=== PATIENT | female | born 1970 | race Caucasian/White ===

== ENCOUNTER → 2020-05-09 10:57 | Outpatient (BNVA) | payer OTHER, SELFPAY | PROVIDERS: PCP Internal Medicine; Visit Provider Physician Assistant | DX: E66.01 Morbid (severe) obesity due to excess calories (principal); Z68.41 Body mass index [BMI] 40.0-44.9, adult; F90.9 Attention-deficit hyperactivity disorder, unspecified type; F41.9 Anxiety disorder, unspecified; F32.9 Major depressive disorder, single episode, unspecified; F10.20 Alcohol dependence, uncomplicated | CPT/HCPCS: 99202 ==

== ENCOUNTER → 2020-06-01 08:25 | Outpatient (BNVA) | payer OTHER, SELFPAY | PROVIDERS: PCP Internal Medicine; Referring Provider Internal Medicine; Visit Provider Physician Assistant | DX: Z76.89 Persons encountering health services in other specified circumstances (principal) ==

== ENCOUNTER → 2020-06-04 08:22 | Outpatient (BNVA) | payer OTHER, SELFPAY | PROVIDERS: PCP Internal Medicine; Visit Provider Surgery | DX: E66.01 Morbid (severe) obesity due to excess calories (principal) | CPT/HCPCS: 99212 ==

== ENCOUNTER → 2020-06-11 14:34 | Outpatient (BNVA) | payer OTHER, SELFPAY | PROVIDERS: PCP Internal Medicine; Visit Provider Surgery | DX: Z12.11 Encounter for screening for malignant neoplasm of colon (principal); Z87.891 Personal history of nicotine dependence | CPT/HCPCS: 99202 ==

== ENCOUNTER → 2020-06-19 08:22 | Outpatient (REF) | payer OTHER, SELFPAY ==
--- NOTE | 2020-06-19 09:24 | XR_ITS ---
EXAMINATION: XR CHEST CLINICAL INFORMATION: Preprocedure COMPARISON: None TECHNIQUE: 2 views of the chest were obtained. FINDINGS: The cardiac and mediastinal contours are normal. The lungs are clear. There is no pleural effusion or pneumothorax. There are degenerative changes of the spine. XR/XR chest 2V IMPRESSION: No evidence for acute disease in the chest.
--- NOTE | 2020-06-19 09:44 | ECG_ITS ---
Test Reason : CP Blood Pressure : / mmHG Vent. Rate : 060 BPM Atrial Rate : 060 BPM P-R Int : 156 ms QRS Dur : 074 ms QT Int : 396 ms P-R-T Axes : 018 001 017 degrees QTc Int : 396 ms Normal sinus rhythm Normal ECG No previous ECGs available Referred By: Lauryn Melendrez Electronically Signed By:YENNY ALANIZ
[2020-06-20 15:03] LABS: H Pylori Breath Test NOT DETECTED (NOT DETECTED)
== END ==
LOC: HO.CARD 08:22
PROVIDERS: Absent Provider Physician Assistant; PCP Internal Medicine; Visit Provider Surgery
DX: Z01.818 Encounter for other preprocedural examination (principal)
CPT/HCPCS: 71046; 83013; 93005; 99211

== ENCOUNTER 2020-06-26 07:23 | Outpatient (REF) | payer OTHER, SELFPAY ==
--- NOTE | 2020-06-26 08:00 | US_ITS ---
EXAMINATION: US COMPLETE ABDOMEN WITH LIVER ELASTOGRAPHY CLINICAL INFORMATION: Obesity. COMPARISON: None. TECHNIQUE: Real-time imaging of the abdominal viscera. Noninvasive ultrasound liver fibrosis assessment is performed using Sebastián ElastPQ point quantification shear wave elastography (pSWE) with a 5 MHz transducer. Multiple elastography samples are obtained. FINDINGS: PANCREAS: Partially visualized. The visualized pancreatic head and body are normal in appearance. The remainder of the pancreas is obscured from visualization by the overlying bowel gas. ABDOMINAL AORTA: The proximal, middle, and distal aortic segments are normal in caliber. INFERIOR VENA CAVA: Visualized portions are normal. LIVER: The liver demonstrates normal size, contour and increased echogenicity. No focal lesion or intrahepatic biliary duct dilatation. The right lobe measures 14.6 cm in length. The left lobe measures 8.4 cm in length. There is normal hepatopedal flow seen. Shear wave elastography provides a median stiffness of 1.29 m/s (reference: normal median stiffness is 0.81 - 1.22 m/s). The IQR/median stiffness to assess sampling precision is 0.3 (reference: optimal IQR/median stiffness is under 0.3). GALLBLADDER: Normal. The gallbladder is physiologically distended without evidence of stones, sludge, polyps, wall thickening or pericholecystic fluid. COMMON BILE DUCT: Normal in caliber measuring 0.8 cm in diameter. RIGHT KIDNEY: Normal. No hydronephrosis. No renal calculi or focal parenchymal lesions. The kidney measures 11.5 cm in maximum dimension. LEFT KIDNEY: Normal. No hydronephrosis. No renal calculi or focal parenchymal lesions. The kidney measures 10.2 cm in maximum dimension. SPLEEN: Normal. The spleen measures 10.2 cm in maximum dimension. FREE FLUID: None. US/US abdomen comp w elastography IMPRESSION: 1. Hepatic steatosis without focal lesion. 2. The partially visualized pancreas is unremarkable. 3. The rest of the abdominal ultrasound is unremarkable. 4. Elastography: Normal to mild fibrosis, F0-F1.
[2020-06-26 08:36] LABS: MANUAL DIFF FLAG NO
[2020-06-26 08:43] LABS: Basophils Absolute Auto 0.1 X10*3/uL (0.0-0.2); Basophils Percent Auto 1.1 % (0-2); Eosinophils Absolute Auto 0.2 X10*3/uL (0.0-0.4); Eosinophils Percent Auto 3.4 % (0-4); Hemoglobin 14.5 g/dl (12.0-16.0); Imm Gran Abs Auto 0.01 X10*3/uL (0.00-0.03); Imm Gran Pct Auto 0.2 % (0.0-0.4); Lymphocytes Absolute Auto 1.6 X10*3/uL (1.2-4.9); Mean Corpuscular Hemoglobin 30.1 pg (27.0-33.0); Mean Corpuscular Volume 91.3 fL (80-98); Mean Platelet Volume 10.1 fL (9.4-12.3); Monocytes Absolute Auto 0.3 X10*3/uL (0.1-1.2); Monocytes Percent Auto 6.8 % (2-11); Neutrophils Absolute Auto 2.6 X10*3/uL (2.0-8.3); Neutrophils Percent Auto 54.5 % (45-73); Platelet Count 302 X10*3/uL (160-400); Red Blood Count 4.82 X10*6/uL (4.20-5.50); Red Cell Distribution Width 12.7 % (11.0-16.0); White Blood Count 4.7 X10*3/uL (4.8-10.8)
--- NOTE | 2020-06-26 08:47 | FL_ITS ---
EXAMINATION: XR GI SERIES CLINICAL INFORMATION: Preop COMPARISON: None TECHNIQUE: Upper GI was performed using thin and thick barium and effervescent granules. FINDINGS: Esophageal motility is normal. There is gastroesophageal reflux. No esophageal hernia or stricture is seen. Stomach and duodenum are normal-appearing. No fold thickening, mass, stricture or ulcer is seen. FLUOROSCOPY TIME: 0.5 minutes DOSE AREA PRODUCT: 8 Butler per centimeter squared. Total dose 26 mgy. 20 saved fluoroscopic images. FL/FL upper GI series IMPRESSION: Gastroesophageal reflux otherwise unremarkable exam.
[2020-06-26 09:15] LABS: Alanine Aminotransferase 19 U/L (0-31); Albumin Level 4.5 g/dL (3.5-5.0); Alkaline Phosphatase 61 U/L (39-117); Anion Gap 13 (12-20); Aspartate Amino Transferase 25 U/L (5-31); Bilirubin Total 0.4 mg/dL (0.0-1.0); Blood Urea Nitrogen 16 mg/dL (9-16); C Reactive Protein 1.17 mg/dL (< or = 0.50); Calcium 9.6 mg/dL (8.4-10.2); Carbon Dioxide 28 mmol/L (22-29); Chloride 105 mmol/L (96-108); Cholesterol 172 mg/dL; Estimated Glomerular Filt Rate > 60; Glucose Random 102 mg/dL (60-115); HDL Cholesterol 55 mg/dL; Iron 49 mcg/dL (30-160); LDL Cholesterol Calculated 106 mg/dl; Percent Iron Saturation 17 % (15-50); Potassium 4.6 mmol/l (3.3-5.1); Sodium 141 mmol/L (135-145); Total Iron Binding Capacity 282 mcg/dL (228-428); Total Protein 7.3 g/dL (6.5-8.0); Triglycerides 55 mg/dL; Unsaturated Iron Binding 233 ug/dL
[2020-06-26 09:40] LABS: TSH reflex Free T4 1.53 mIU/mL (0.32-4.0); Vitamin D 25-OH Total 23.6 ng/mL (>30)
[2020-06-26 09:44] LABS: Folate 11.5 ng/mL (> or = 4.0); Vitamin B12 1008 pg/mL (200-900)
[2020-06-26 10:13] LABS: Estimated Average Glucose 97 mg/dL
[2020-06-26 10:14] LABS: Ferritin 73 ng/mL (10-250)
[2020-06-27 11:33] LABS: Calcium (PTHI) 9.7 mg/dL (8.6-10.4); Insulin Level Total 8.4 uIU/mL; PTHI 56 pg/mL (14-64)
[2020-06-29 16:47] LABS: Zinc 121 mcg/dL (60-130)
[2020-06-30 21:12] LABS: Vitamin A 38 mcg/dL (38-98)
[2020-07-01 10:23] LABS: Vitamin B1 7 nmol/L (8-30)
== END 2020-06-26 07:24 | disposition home or self-care (01) ==
LOC: HO.US 07:23
PROVIDERS: Absent Provider Physician Assistant; PCP Internal Medicine; Visit Provider Surgery
DX: Z01.818 Encounter for other preprocedural examination (principal); E66.01 Morbid (severe) obesity due to excess calories; K21.9 Gastro-esophageal reflux disease without esophagitis; Z98.84 Bariatric surgery status; Z98.890 Other specified postprocedural states; Z90.3 Acquired absence of stomach [part of]
CPT/HCPCS: 36415; 74240; 76705; 76981; 80053; 80061; 82306; 82607; 82728; 82746; 83036; 83525; 83540; 83970; 84425; 84443; 84590; 84630; 85025; 86140

== ENCOUNTER → 2020-06-27 08:10 | Outpatient (BNVA) | payer OTHER, SELFPAY | PROVIDERS: PCP Internal Medicine; Visit Provider Dietitian, Registered | DX: Z76.89 Persons encountering health services in other specified circumstances (principal) ==

== ENCOUNTER → 2020-06-29 08:34 | Outpatient (BNVA) | payer OTHER, SELFPAY | PROVIDERS: PCP Internal Medicine; Visit Provider Surgery | DX: Z76.89 Persons encountering health services in other specified circumstances (principal) ==

== ENCOUNTER → 2020-07-12 08:00 | Outpatient (BNVA) | payer OTHER, SELFPAY | PROVIDERS: PCP Internal Medicine; Visit Provider Dietitian, Registered ==

== ENCOUNTER 2020-07-13 08:16 | Day surgery (SDC) | payer OTHER, SELFPAY ==
[2020-07-12 08:21] VITALS: BMI 41.1
--- NOTE | 2020-07-12 10:50 | HO.ANESPROP2 ---
Documented by User: Meena Viveros 07/12/20 10:52 HPI - Anesthesia Eval Consult details Narrative: 50yo F for Colonoscopy PMFSH Past Medical History Medical History ADHD Anxiety and depression Bone spur Morbid obesity Family History Family History Father No problems noted. Mother Cholangiocarcinoma Sister Diabetes mellitus Brother No problems noted. Brother No problems noted. Son No problems noted. Surgical History Surgical History History of back surgery Social History Social History Alcohol intake: never Smoking Status: Former smoker Packs Per Day: 1 Years Smoked: 10 Second Hand Smoke Exposure: No Use of substances other than those prescribed or required for medical reasons: No Advance Directives: No Advance Directives Information Provided: No Advance Directives on File: No Meds Allergies Allergy/AdvReac Type Severity Reaction Status Date / Time Latex, Natural Rubber Allergy Mild Hives Verified 07/13/20 08:28 prochlorperazine Allergy Mild Itching Verified 07/13/20 08:28 [From Compazine] Home Medications Medication Instructions Recorded Confirmed Type dextroamphetamine-amphetamine 20 20 mg PO BID 05/09/20 06/04/20 History mg tablet lamotrigine 100 mg tablet 100 mg PO DAILY 05/09/20 06/04/20 History levonorgestrel 20 mcg/24 hours (6 INTRAUTERINE 05/09/20 06/04/20 History yrs) 52 mg intrauterine device omeprazole 20 mg capsule,delayed 20 mg PO DAILY 05/09/20 06/04/20 History release trazodone 100 mg tablet mg PO 05/09/20 06/04/20 History Exam Exam Date and Time: July 12, 2020 1050 Height,Weight and Vital Signs: Height 5 ft 3 in Weight 105.347 kg Pertinent Lab Results Pertinent Lab Results: Laboratory Tests 06/26/20 06/26/20 07:45 07:45 WBC 4.7 L Hgb 14.5 Hct 44.0 Plt Count 302 Sodium 141 Potassium 4.6 Chloride 105 Carbon Dioxide 28 BUN 16 Creatinine 0.86 Assessment and Plan Assessment Anesthesia Assessment: Chart Reviewed Documented by User: Blanca Mcneil 07/13/20 08:57 PMFSH Past Medical History Medical History ADHD Anxiety and depression Bone spur Morbid obesity Family History Family History Father No problems noted. Mother Cholangiocarcinoma Sister Diabetes mellitus Brother No problems noted. Brother No problems noted. Son No problems noted. Surgical History Surgical History History of back surgery Social History Social History Alcohol intake: never Smoking Status: Former smoker Packs Per Day: 1 Years Smoked: 10 Second Hand Smoke Exposure: No Use of substances other than those prescribed or required for medical reasons: No Advance Directives: No Advance Directives Information Provided: No Advance Directives on File: No Meds Allergies Allergy/AdvReac Type Severity Reaction Status Date / Time Latex, Natural Rubber Allergy Mild Hives Verified 07/13/20 08:28 prochlorperazine Allergy Mild Itching Verified 07/13/20 08:28 [From Compazine] Home Medications Medication Instructions Recorded Confirmed Type dextroamphetamine-amphetamine 20 20 mg PO BID 05/09/20 06/04/20 History mg tablet lamotrigine 100 mg tablet 100 mg PO DAILY 05/09/20 06/04/20 History levonorgestrel 20 mcg/24 hours (6 INTRAUTERINE 05/09/20 06/04/20 History yrs) 52 mg intrauterine device omeprazole 20 mg capsule,delayed 20 mg PO DAILY 05/09/20 06/04/20 History release trazodone 100 mg tablet mg PO 05/09/20 06/04/20 History Exam Airway Mallampati Class: II TM Dist: >3cm Neck ROM: Full Heart: RRR Lungs: CTA
[2020-07-13 08:40] VITALS: BP 120/65; PULSE 77; RESP 16; TEMP 36.4; O2SAT 98
[2020-07-13] MEDS: Lactated Ringers 1,000 ML 100 ML IVCONT (09:04)
--- NOTE | 2020-07-13 09:07 | P.HPSUR_ITS ---
Pre-Procedural Eval Section B Chief Complaint: screening Details of Present Illness: for screening colonoscopy Relevant Family History (Specify if Yes): No Relevant Social History: None Present Medications: see Short Stay Collaborative assessment Medical History: No relevant PMH History of Previous Operations: No relevant previous surgery Allergies: Allergies Allergy/AdvReac Type Severity Reaction Status Date / Time Latex, Natural Rubber Allergy Mild Hives Verified 07/13/20 08:28 prochlorperazine Allergy Mild Itching Verified 07/13/20 08:28 [From Compazine] Review of Systems Sugical H&P ROS: Negative: Constitution, Cardiovascular, Respiratory, N eurological, Psychiatric, Hem-Onc, Allergic/Immunologic, Gastrointestinal, Genitourinary, Musculoskeletal, Integumentary, Endocrine and Eyes/Ears/Nose/Throat Exam Surgical H&P Exam: Normal: HEENT, Normal: Heart, Normal: Lungs, Normal: Extremities, Normal: Abdomen, Normal: Skin and Normal: Neurological Plan Diagnosis/Plan: Unchanged I have reviewed the history and physical and performed a pertinent physical examination on my patient. No changes have occurred unless specified.
[2020-07-13 09:39] VITALS: BP 93/41; PULSE 72; RESP 16; TEMP 37.1; O2SAT 96
--- NOTE | 2020-07-13 09:39 | PM.OP ---
Brief Operative Note Date of Service: 07/13/20 Pre-op diagnosis: colon ca screen Post-op diagnosis: same Procedure: colonoscopy Surgeon: Rob Dykes MD Anesthesia: MAC Estimated blood loss (mL): 0 Pathology: none sent Condition: stable Disposition: PACU
[2020-07-13 09:54] VITALS: BP 123/70; PULSE 82; RESP 18; O2SAT 97
[2020-07-13 09:57] VITALS: TEMP 36.7
--- NOTE | 2020-07-13 10:11 | OP_ITS ---
SURGEON: Rob Dykes MD INDICATIONS: The patient is a 50-year-old female, who was referred for screening colonoscopy. She understood the technique of the procedure. She was aware of the risks, benefits, and alternatives. She said she remembers having colonoscopy about more than 20 years ago, but she does not recall the reason. She says this was unremarkable at that time. PREOPERATIVE DIAGNOSIS: Colon cancer screening. POSTOPERATIVE DIAGNOSIS: Normal colonoscopy findings. PROCEDURE PERFORMED: Colonoscopy. ESTIMATED BLOOD LOSS: COMPLICATIONS: ANESTHESIA: ASSISTANTS: SPECIMENS: DESCRIPTION OF PROCEDURE: She was brought to the operating room and placed in left lateral decubitus position under monitored anesthesia care. A full digital rectal exam was done. There were no palpable anal canal lesions. The tip of the Olympus colonoscope was introduced gently through the anal orifice and advanced with insufflation all the way to the cecum. The cecum was intubated. The cecum was identified by visualization of the cecal valve as well as the appendiceal orifice. The cecal mucosa was unremarkable. The scope was gradually withdrawn with careful examination of the entire colonic mucosa being done with scope withdrawal. This patient has good bowel prep, so it was unlikely that any lesion had been missed. The rectum was reached, and there were no lesions seen. The anal canal was unremarkable. She did have some internal and external hemorrhoids and we made sure that they were not bulky. The scope was then withdrawn completely with de-sufflation. The patient tolerated the procedure well. There were no complications noted. She falls at average risk for colon cancer, so next colonoscopy may be in the next 10 years. MD CALEB Gonzalez/MODL / [id number]
== END 2020-07-13 10:55 | disposition home or self-care (01) ==
PROVIDERS: PCP Internal Medicine; Visit Provider Surgery
PROC: 0DJD8ZZ Inspection of Lower Intestinal Tract, Via Natural or Artificial Opening Endoscopic (ICD-10-PCS; CPT 45378; principal; 2020-07-13 09:30)
DX: Z12.11 Encounter for screening for malignant neoplasm of colon (principal); K64.8 Other hemorrhoids; K64.4 Residual hemorrhoidal skin tags; F90.9 Attention-deficit hyperactivity disorder, unspecified type; E66.01 Morbid (severe) obesity due to excess calories; Z68.41 Body mass index [BMI] 40.0-44.9, adult; Z87.891 Personal history of nicotine dependence; Z91.040 Latex allergy status; Z88.8 Allergy status to other drugs, medicaments and biological substances; Z79.899 Other long term (current) drug therapy
CPT/HCPCS: 45378

== ENCOUNTER → 2020-07-23 08:18 | Outpatient (BNVA) | payer OTHER, SELFPAY | PROVIDERS: PCP Internal Medicine; Visit Provider Surgery ==

== ENCOUNTER → 2020-08-24 08:55 | Outpatient (BNVA) | payer OTHER, SELFPAY | PROVIDERS: PCP Internal Medicine; Visit Provider Surgery ==

== ENCOUNTER 2020-08-30 13:10 | Outpatient (REF) | payer OTHER, SELFPAY ==
[2020-08-30 13:36] LABS: MANUAL DIFF FLAG NO
[2020-08-30 13:42] LABS: Basophils Absolute Auto 0.1 X10*3/uL (0.0-0.2); Basophils Percent Auto 0.7 % (0-2); Eosinophils Percent Auto 0.3 % (0-4); Hemoglobin 14.4 g/dl (12.0-16.0); Imm Gran Abs Auto 0.03 X10*3/uL (0.00-0.03); Imm Gran Pct Auto 0.4 % (0.0-0.4); Lymphocytes Percent Auto 26.8 % (20-40); Mean Corpuscular HGB Conc 33.5 g/dl (31.0-35.0); Mean Corpuscular Hemoglobin 29.9 pg (27.0-33.0); Mean Corpuscular Volume 89.4 fL (80-98); Mean Platelet Volume 9.5 fL (9.4-12.3); Monocytes Absolute Auto 0.5 X10*3/uL (0.1-1.2); Neutrophils Absolute Auto 4.9 X10*3/uL (2.0-8.3); Neutrophils Percent Auto 65.8 % (45-73); Platelet Count 347 X10*3/uL (160-400); Red Blood Count 4.81 X10*6/uL (4.20-5.50); Red Cell Distribution Width 12.7 % (11.0-16.0); White Blood Count 7.5 X10*3/uL (4.8-10.8)
[2020-08-30 13:46] LABS: INTERNATIONAL NORM RATIO 1.2 (0.9-1.1); Prothrombin Time 14.2 SEC (10.8-13.0)
[2020-08-30 13:48] LABS: Partial Thromboplastin Time 37.6 SEC (24.1-38.0)
[2020-08-30 13:51] LABS: Estimated Average Glucose 108 mg/dL; Hemoglobin A1c % 5.4 %
[2020-08-30 14:04] LABS: Alanine Aminotransferase 8 U/L (0-31); Albumin Level 4.8 g/dL (3.5-5.0); Alkaline Phosphatase 74 U/L (39-117); Anion Gap 17 (12-20); Aspartate Amino Transferase 19 U/L (5-31); Bilirubin Total 0.8 mg/dL (0.0-1.0); Blood Urea Nitrogen 13 mg/dL (9-16); C Reactive Protein 2.07 mg/dL (< or = 0.50); Carbon Dioxide 27 mmol/L (22-29); Chloride 100 mmol/L (96-108); Cholesterol 209 mg/dL; Estimated Glomerular Filt Rate > 60; Glucose Random 92 mg/dL (60-115); HDL Cholesterol 52 mg/dL; LDL Cholesterol Calculated 145 mg/dl; Sodium 140 mmol/L (135-145); Triglycerides 62 mg/dL
[2020-08-30 14:27] LABS: TSH reflex Free T4 1.06 uIU/mL (0.32-4.0)
[2020-09-04 06:41] LABS: Insulin Level Total 5.3 uIU/mL
== END 2020-08-30 13:11 | disposition home or self-care (01) ==
LOC: HO.LAB 13:10
PROVIDERS: PCP Internal Medicine; Visit Provider Surgery
DX: E66.9 Obesity, unspecified (principal); Z68.39 Body mass index [BMI] 39.0-39.9, adult
CPT/HCPCS: 36415; 80053; 80061; 83036; 83525; 84443; 85025; 85610; 85730; 86140

== ENCOUNTER → 2020-08-31 13:53 | Outpatient (BNVA) | payer OTHER, SELFPAY | PROVIDERS: PCP Internal Medicine; Visit Provider Physician Assistant ==

== ENCOUNTER 2020-09-04 06:21 | Inpatient (IN) | payer OTHER, SELFPAY ==
[2020-08-24 13:27] VITALS: BMI 85.7
--- NOTE | 2020-09-03 09:32 | P.CONAN_ITS ---
Documented by User: Meena Viveros 09/03/20 09:36 HPI - Anesthesia Eval Consult details Narrative: 50yo F for Gastrectomy Sleeve *h/o of ETOH abuse, requesting NO post-op narcotics* PMFSH Active Problems Active Problems: All Active Problems (Updated 08/24/20 @ 14:12 by Chino Kilgore MD) GERD (gastroesophageal reflux disease) (Acute) Pre-op evaluation (Acute) Encounter for screening colonoscopy (Acute) Obesity (Acute) BMI 39.0-39.9,adult (Acute) Anxiety and depression (Acute) ADHD (Acute) Morbid obesity (Acute) Past Medical History Medical History ADHD Anxiety and depression Arthritis Bone spur GERD (gastroesophageal reflux disease) GERD (gastroesophageal reflux disease) History of alcohol dependence Morbid obesity Sleep apnea Family History Family History Father No problems noted. Mother Cholangiocarcinoma Sister Diabetes mellitus Brother No problems noted. Brother No problems noted. Son No problems noted. Surgical History Surgical History H/O colonoscopy History of back surgery Social History Social History Are you a primary ocular care technician to a significant other at home: No Do you presently have visiting nurse or other home services: No Alcohol intake: former Year quit: 2014 Smoking Status: Former smoker Tobacco Type: Cigarette Packs Per Day: 1 Years Smoked: 10 Smoked in Last 30 Days: No Smoking Quit Date: 1992 Second Hand Smoke Exposure: No Use of substances other than those prescribed or required for medical reasons: No Have you been hit, kicked, punched, or otherwise hurt by someone within the past year? If so, by whom?: No Advance Directives Information Provided: No Recently lost weight without trying: No Meds Allergies Allergy/AdvReac Type Severity Reaction Status Date / Time Latex, Natural Rubber Allergy Mild Hives Verified 09/04/20 06:25 prochlorperazine Allergy Mild itching/anx Verified 09/04/20 06:25 [From Compazine] iety Home Medications Medication Instructions Recorded Confirmed Last Taken Type dextroamphetamine-amphetamine 20 20 mg PO BID 05/09/20 08/24/20 Unknown History mg tablet lamotrigine 100 mg tablet 100 mg PO DAILY 05/09/20 08/24/20 Unknown History levonorgestrel 20 mcg/24 hours (6 INTRAUTERINE 05/09/20 06/04/20 Unknown History yrs) 52 mg intrauterine device omeprazole 20 mg capsule,delayed 20 mg PO DAILY 05/09/20 08/24/20 Unknown History release trazodone 100 mg tablet 100 mg PO BEDTIME PRN 05/09/20 08/24/20 Unknown History Lactobacillus acidophilus 500 mmu cells PO DAILY 08/24/20 08/24/20 Unknown History [Acidophilus] gabapentin 1 cap PO BEDTIME 08/24/20 08/24/20 Unknown History vitamin B complex 1 tab PO DAILY 08/24/20 08/24/20 Unknown History Exam Exam Date and Time: September 03, 2020 0932 Height,Weight and Vital Signs: Height 5 ft 3.5 in Weight 223 kg Pertinent Lab Results Pertinent Lab Results: Laboratory Tests 08/30/20 13:25 Blood Type A Negative Antibody Screen NEGATIVE Laboratory Tests 08/30/20 08/30/20 13:25 13:25 WBC 7.5 Hgb 14.4 Hct 43.0 Plt Count 347 Sodium 140 Potassium 4.0 Chloride 100 Carbon Dioxide 27 BUN 13 Creatinine 0.93 Laboratory Tests 08/30/20 08/30/20 13:25 13:25 Hemoglobin A1c % 5.4 Total Bilirubin 0.8 AST 19 ALT 8 Alkaline Phosphatase 74 D C-Reactive Protein 2.07 H Total Protein 8.0 Albumin 4.8 TSH 1.06 Narrative Narrative: EKG 05/2020 Vent. Rate : 060 BPM Atrial Rate : 060 BPM P-R Int : 156 ms QRS Dur : 074 ms QT Int : 396 ms P-R-T Axes : 018 001 017 degrees QTc Int : 396 ms Normal sinus rhythm Normal ECG No previous ECGs available Assessment and Plan Assessment Anesthesia Assessment: Chart Reviewed Documented by User: Freddie Gutierrez 09/04/20 07:55 PMFSH Past Medical History Medical History ADHD Anxiety and depression Arthritis Bone spur GERD (gastroesophageal reflux disease) GERD (gastroesophageal reflux disease) History of alcohol dependence Morbid obesity Sleep apnea Family History Family History Father No problems noted. Mother Cholangiocarcinoma Sister Diabetes mellitus Brother No problems noted. Brother No problems noted. Son No problems noted. Surgical History Surgical History H/O colonoscopy History of back surgery Social History Social History Are you a primary ocular care technician to a significant other at home: No Do you presently have visiting nurse or other home services: No Alcohol intake: former Year quit: 2014 Smoking Status: Former smoker Tobacco Type: Cigarette Packs Per Day: 1 Years Smoked: 10 Smoked in Last 30 Days: No Smoking Quit Date: 1992 Second Hand Smoke Exposure: No Use of substances other than those prescribed or required for medical reasons: No Have you been hit, kicked, punched, or otherwise hurt by someone within the past year? If so, by whom?: No Advance Directives Information Provided: No Recently lost weight without trying: No Meds Allergies Allergy/AdvReac Type Severity Reaction Status Date / Time Latex, Natural Rubber Allergy Mild Hives Verified 09/04/20 06:25 prochlorperazine Allergy Mild itching/anx Verified 09/04/20 06:25 [From Compazine] iety Home Medications Medication Instructions Recorded Confirmed Last Taken Type dextroamphetamine-amphetamine 20 20 mg PO BID 05/09/20 08/24/20 Unknown History mg tablet lamotrigine 100 mg tablet 100 mg PO DAILY 05/09/20 08/24/20 Unknown History levonorgestrel 20 mcg/24 hours (6 INTRAUTERINE 05/09/20 06/04/20 Unknown History yrs) 52 mg intrauterine device omeprazole 20 mg capsule,delayed 20 mg PO DAILY 05/09/20 08/24/20 Unknown History release trazodone 100 mg tablet 100 mg PO BEDTIME PRN 05/09/20 08/24/20 Unknown History Lactobacillus acidophilus 500 mmu cells PO DAILY 08/24/20 08/24/20 Unknown History [Acidophilus] gabapentin 1 cap PO BEDTIME 08/24/20 08/24/20 Unknown History vitamin B complex 1 tab PO DAILY 08/24/20 08/24/20 Unknown History Exam Airway Mallampati Class: III TM Dist: >3cm Neck ROM: Full Loose/Missing/Broken Teeth: No Heart: [id number] Lungs: cta b/l Assessment and Plan Assessment Anesthesia Assessment: Anesthesia Plan Discussed, PAT Visit and Chart Reviewed Final Anesthetic Review NPO: Yes ASA Class: II Final Preanesthetic Review: No Changes in Pt Med Stat, Meds/Allgs Chart Reviewed, Consent Obtained/Reviewed and Anes Risks/Benef Reviewed Patient Risk: Low Procedure Risk: Low Assessment/Block/Sedation in SS: Assess/Block/Sedation-SS Anesthetic Plan Anesthetic Plan: GA and Agree w/ Assess. and Plan Disposition: Standard PACU
--- NOTE | 2020-09-03 22:39 | P.HPSUR_ITS ---
Pre-Procedural Eval Section A The patient is an INPATIENT: Yes The History & Physical has been completed within 30 days and I have reviewed it.: No Section B Chief Complaint: severe obesity Details of Present Illness: Obesity Relevant Family History (Specify if Yes): No Relevant Social History: None Present Medications: see Short Stay Collaborative assessment Medical History: No relevant PMH History of Previous Operations: No relevant previous surgery Allergies: Allergies Allergy/AdvReac Type Severity Reaction Status Date / Time Latex, Natural Rubber Allergy Mild Hives Verified 08/24/20 14:09 prochlorperazine Allergy Mild itching/anx Verified 08/24/20 14:09 [From Compazine] iety Review of Systems Sugical H&P ROS: Negative: Constitution, Cardiovascular, Respiratory, Neuro logical, Psychiatric, Hem-Onc, Allergic/Immunologic, Gastrointestinal, Genitourinary, Musculoskeletal, Integumentary, Endocrine and Eyes/Ears/Nose/Throat Exam Surgical H&P Exam: Normal: HEENT, Normal: Heart, Normal: Lungs, Normal: Extremities, Normal: Abdomen, Normal: Skin and Normal: Neurological Plan Diagnosis/Plan: Unchanged I have reviewed the history and physical and performed a pertinent physical examination on my patient. No changes have occurred unless specified.
[2020-09-04] VITALS (15 sets, daily range): BP systolic 126–161; BP diastolic 50–89; PULSE 60–104; RESP 14–20; TEMP 36.4–37.2; O2SAT 95–100; BMI 35.6
[2020-09-04 06:53] LABS: COVID-19 Test Negative (Negative)
[2020-09-04] MEDS: Lactated Ringers 1,000 ML 100 ML IVCONT (07:09)
[2020-09-04] MEDS: Lactated Ringers 1,000 ML 999 ML IV (07:09)
--- NOTE | 2020-09-04 10:33 | P.BOP_ITS ---
Brief Operative Note Date of Service: 09/04/20 Pre-op diagnosis: Morbid obesity and comorbidities (see below) Post-op diagnosis: same (& large diaphragmatic hernia) Procedure: INITIAL PATIENT BMI ON PRESENTATION AT OUR OFFICE: 46.3 kg/m2 LAST BMI BEFORE SURGERY: 37,7 kg/m2 COMORBIDITIES: GERD, ADHD, depression, insomnia, liver steatosis The patient participated in an intensive weekly lifestyle intervention and exercise program during which the patient has lost between the initial office visit and the last preoperative visit 31.8lbs, or 13% of initial actual body weight. The patient met the BMI-criteria for bariatric surgery based on the BMI on initial presentation. The patient should not be penalized for achieving such weight loss because it is not sustainable long-term without surgical intervention and it was achieved in preparation for bariatric surgery under my direction and based on my published research ([email or web address] and [email or web address]) that a 10% preoperative weight loss improves long-term weight loss after surgery and reduces perioperative complications. Insurance carriers such as [facility] have endorsed my recommendations and have included in their policies criteria to include a 10% preoperative weight loss requirement. PROCEDURE: Esophago-gastroscopy, laparoscopic repair of incarcerated diaphragmatic hernia, laparoscopic lysis of adhesions, laparoscopic sleeve gastrectomy and laparoscopic gastropexy INDICATIONS: This is a 50 year-old female who was electively scheduled for laparoscopic, possibly open sleeve gastrectomy. The risks and complications of the procedure were discussed with the patient in advance, particularly the possibility of ; pulmonary embolism; staple line leak; bleeding; GERD; cardiac, pulmonary, or renal complications; as well as long-term problems such as insufficient weight loss, vitamin deficiency, strictures, or ulcers. The patient understood all the risks, and was in agreement to proceed with surgery. DESCRIPTION OF PROCEDURE: After informed consent was obtained from the patient, the patient was given preoperative antibiotics, and was transferred to the operating room. After successful induction of general anesthesia, pneumatic compressive devices were placed on both lower extremities. An upper endoscopy was performed next. The oropharynx and esophagus appeared to be within normal limits. There was a moderate to large diaphragmatic hernia present that was not reported at the preoperative upper GI. The stomach was entered. Then after all fluid and air were suctioned and the stomach was fully decompressed, the scope was withdrawn and secured in the mid esophagus. The patient was then prepped and draped in the usual sterile manner, and abdominal access was established at the right upper quadrant with the Brigitte technique. A 12 mm blunt port was inserted, and the abdomen was insufflated with CO2 to a pressure of 15 mmHg. Under direct visualization, additional ports were placed, specifically two 5 mm Versi-step ports to the left upper quadrant, and a 5 mm Versi-Step port to the right upper quadrant. 1% lidocaine plan was used to infiltrate all port sites as well as all fascia defects. Using the EndoClose suture passer device, we placed a #1 Polysorb tie across the falciform ligament in order to retract it up against the abdominal wall and prevent injury of the ligament with our instruments during the procedure. Following that, the patient was placed in a steep reverse Trendelenburg position. An additional 5 mm port was placed to the right flank for the Mediflex retractor that was used to retract the left lobe of the liver. The gastro-esophageal fat pad was opened with the ultrasonic device (Thunderbeat, Olympus) and the anterior esophagus and hiatus were exposed. The angle of His was opened with the ultrasonic device the fundus of the stomach from any diaphragmatic and splenic attachments. I then opened the gastrocolic ligament between the transverse colon and the greater curvature of the stomach with the ultrasonic device to enter the lesser sac and facilitate the ligation of the short gastric vessels. I started at a mid-point along the greater curvature and using the Thunderbeat, all short gastric vessels were divided all the way to the angle of His until the left ann was completely dissected at its entirety. I then divided the gastro-colic ligament distally to a distance of about 3-4 cm proximal to the esophagus. There were extensive congenital adhesions between the pancreas and posterior gastric wall. Those were lysed completely with the ultrasonic device. Adhesiolysis took approximately 45 min to complete. There was an obvious significant-sized hiatal hernia. I continued dissecting along the hiatus toward the left ann and the angle of His. I fully mobilized the fat pad that was incarcerated in the hernia. I then continued by dissecting even further into the posterior retro-esophageal space all the way to the angle of His. I continued to mobilize the esophagus into the mediastinum circumferentially. The right ann was also dissected free completely. Both vagal nerves were seen and preserved. At that point, I was able to have at least 3 to 5 cm of esophagus into the abdomen. After I completely mobilized the esophagus from both the left and right ann and I had a good mobilization of the esophagus circumferentially, I closed the hernia defect with five interrupted #0 Surgidac sutures using the Endo Stitch device, three of which was placed posterior and two anterior to the esophagus. The stomach was then divided transversely with two Endo JAVID-45 purple and four JAVID-60 articulating purple loads using the Brain Sentry stapler and loads. Every effort was made that the gastric sleeve had a tubular shape and an even caliber throughout. Once the sleeve resection was completed, the staple line of the gastric sleeve was reinforced with Hemoclips. The resected stomach was retrieved without difficulty from the Brigitte port. A gastropexy was then performed in order to prevent postoperative GERD and partial gastric volvulus. Several interrupted 2.0 Surgidac sutures were placed between the sleeve's staple line and the previously divided greater omentum and gastro-colic ligament using the Endo-Stitch device. An upper endoscopy was performed. There was no narrowing at the GE junction. T he scope was easily advanced all the way to the pylorus which was clearly visualized. There was no narrowing anywhere and the sleeve's caliber was even throughout. The sleeve's staple line was inspected and there was no evidence of ischemia, bleeding or dehiscence. At that point the gastroscope was withdrawn from the patient?s mouth while we were decompressing the bowel and the stomach from any remaining air. I looked into the lesser sac to see how the sleeve was situating and it was situating well. There was no bleeding from the staple line, spleen, or short gastric vessels. The Mediflex retractor was removed, and the undersurface of the liver was inspected and there was no bleeding. The patient was placed in supine position. I closed the fascial defect of the 12 mm port site with a figure of eight #1 Polysorb suture. Then 100 cc 0.25 % Marcaine plain with 10 mg of Dexamethasone were used to infiltrate the fascial closure as well as all skin incisions. At this point, the abdomen was deflated, all ports were removed under direct vision, and no bleeding was noted from any of the port sites. The skin incisions were irrigated with saline and were closed with 4-0 absorbable monofilament sutures. Steri-Strips and OpSites were used to cover all incisions. The patient was extubated and was transferred in stable condition to the recovery room for further care. I was present and performed all henry parts of the procedure. Ms. Melendrez was the mental health assistant. There were no residents to assist with this case. Edward Kilgore MD, PhD, FACS Surgeon: Chino Kilgore MD Anesthesia: GETA, local and other (TAP block) Metal Alloy Scientist: Lauryn Melendrez Estimated blood loss (mL): 10 IV fluids (mL): 2,500 Urine output (mL): 0 (No freeman to record) Pathology: other (Stomach) Condition: stable Disposition: PACU
--- NOTE | 2020-09-04 10:38 | P.DS_ITS ---
DS: Providers Provider Date of Service: 09/05/20 Date of admission: 09/04/20 06:21 Primary care physician: Sonny Cody MD DS: Medications Discharge Medications Home Medications: Home Medications Medication Instructions Recorded Confirmed dextroamphetamine-amphetamine 20 20 mg PO BID 05/09/20 08/24/20 mg tablet lamotrigine 100 mg tablet 100 mg PO DAILY 05/09/20 08/24/20 levonorgestrel 20 mcg/24 hours (6 INTRAUTERINE 05/09/20 06/04/20 yrs) 52 mg intrauterine device omeprazole 20 mg capsule,delayed 20 mg PO DAILY 05/09/20 08/24/20 release trazodone 100 mg tablet 100 mg PO BEDTIME PRN 05/09/20 08/24/20 Lactobacillus acidophilus 500 mmu cells PO DAILY 08/24/20 08/24/20 [Acidophilus] gabapentin 1 cap PO BEDTIME 08/24/20 08/24/20 vitamin B complex 1 tab PO DAILY 08/24/20 08/24/20 Previous Rx's Medication Instructions Recorded cholecalciferol (vitamin D3) 25 25 mcg PO DAILY #30 cap 06/27/20 mcg (1,000 unit) capsule ondansetron HCl 4 mg tablet 4 mg PO DAILY #20 tab 08/24/20 pantoprazole 40 mg tablet,delayed 40 mg PO DAILY #30 tab 08/24/20 release polyethylene glycol 3350 17 gram 17 g PO DAILY #14 ea 08/24/20 oral powder packet sucralfate 100 mg/mL oral 10 ml PO BID #400 ml 08/24/20 suspension DS: Summary Time Spent with Patient Time attestation: Total time spent providing and/or coordinating discharge servi keren: 15 minutes ADMITTING DIAGNOSIS: morbid obesity, hiatal hernia, ADHD, anxiety/depression, GERD, INDU DISCHARGE DIAGNOSIS: same, s/p laparoscopic sleeve gastrectomy and repair of hiatal hernia PAST SURGICAL HISTORY: none PROCEDURE: upper endoscopy, laparoscopic sleeve gastrectomy and repair of hiatal hernia DISCHARGE SUMMARY: History of Present Illness: The patient is a 50 year-old woman with a BMI of 43.7 kg/m2 and associated co- morbidities as described above. The patient had extensive work-up,lost 30.4 lbs preoperatively and was electively scheduled for laparoscopic, possible open sleeve gastrectomy and gastropexy. Risks and complications of the surgery were discussed with the patient in advance, particularly the possibility of , pulmonary embolism, anastomotic leak, bleeding, bowel injury, GERD, cardiac, renal or pulmonary complications. The patient understood all the risks and was in agreement with the surgical plan. Hospital Course: The patient underwent an uneventful laparoscopic sleeve gastrectomy with gastropexy and repair of hiatal hernia on the day of admission. Postoperatively, the patient was transferred to the surgical floor. The patient was on IV Acetaminophen and IV dilaudid for pain control. Patient was started on bariatric phase 1 diet POD #0. On postoperative day one, the patient was feeling well without nausea, vomiting, fevers, or tachycardia. The patient had some mild incisional pain. The abdomen was soft. On the morning of postoperative day one, the patient was continued on 1 ounce of water or ice every half hour. During the first day, the patient did fairly well, having some incisional pain, but able to ambulate adequately and to tolerate liquids well. Since the patient is doing well, we decided that the patient was ready to be discharged. The patient was given instructions to follow-up with me next week and to call my office for any fever over 101, persistent abdominal pain, nausea, vomiting, GERD, symptoms of DVT such as calf tenderness, or leg swelling, or pulmonary embolism such as chest pain or shortness of breath. The patient was also instructed to drink 40-60 ounces of liquids per day using the 1-ounce cups. The patient was given prescription for Tylenol for pain, Zofran prn for nausea, and pantoprazole and carafate. The patient was encouraged to ambulate and use the incentive spirometer. The patient was allowed to shower, but no baths, and encouraged to stay active at home. All of these instructions were given to the patient personally. All questions were answered and the patient understood all instructions, the instructions were also given to the patient in print. Discharge coordination time: Less than 30 minutes Physical Exam Vital Signs: Vital Signs: Last Vital Signs Temp 99.0 F 09/04/20 06:20 Pulse 72 09/04/20 06:20 Resp 16 09/04/20 06:20 BP 126/50 L 09/04/20 06:20 Pulse Ox 99 09/04/20 06:20 Body Mass Index 35.6 DS: Data Data Completed and Pending Pending studies at discharge: Pending at discharge 09/04/20 08:48 Surgical [PTH] Routine Labs on day of discharge: Laboratory Results - last 24 hr 09/04/20 06:15 COVID-19 (ROZ) Negative COVID-19 Clin Com See Note Discharge Plan Discharge Anticipated Discharge Date/Time: 09/05/20 10:36 Patient Disposition: Home, Self-Care Referrals: Sonny Cody MD [Primary Care Provider] - Discharge Medications: Continued gabapentin 300 mg capsule 1 cap PO BEDTIME RF: 0 pantoprazole 40 mg tablet,delayed release (DR/EC) 40 mg PO DAILY Qty: 30 RF: 2 sucralfate 100 mg/mL suspension 10 ml PO BID Qty: 400 RF: 2 ondansetron HCl [Zofran] 4 mg tablet 4 mg PO DAILY Qty: 20 RF: 0 trazodone 100 mg tablet 100 mg PO BEDTIME PRN (Reason: Insomnia) RF: 0 lamotrigine 100 mg tablet 100 mg PO DAILY RF: 0 Mirena 20 mcg/24 hours (6 yrs) 52 mg intrauterine device intrauterine RF: 0 dextroamphetamine-amphetamine [Adderall] 20 mg tablet 20 mg PO BID RF: 0 Discontinued cholecalciferol (vitamin D3) 25 mcg (1,000 unit) capsule 25 mcg PO DAILY Qty: 30 RF: 11 vitamin B complex Tablet 1 tab PO DAILY RF: 0 Lactobacillus acidophilus [Acidophilus] 500 million cell Tablet 500 mmu cells PO DAILY RF: 0 polyethylene glycol 3350 [Miralax] 17 gram powder in packet 17 g PO DAILY Qty: 14 RF: 0 omeprazole 20 mg capsule,delayed release(DR/EC) 20 mg PO DAILY RF: 0 Discharge Orders: Discharge Order (Routine); Ordered 09/05/20 Ordered By: Chino Kilgore Activity on Discharge: As tolerated Stand Alone Forms: Patient Portal Discharge page Activity Restrictions/Additional Instructions: No tub baths, sex or returning to work until discussed at first post op appointment. No exercise, alcohol, tobacco or illegal drug use. Continue to use incentive spirometer hourly while awake. Walk in home for 5- 10 minutes every 2 hours during the first week. Continue phase 1 diet today and start phase 2 diet tomorrow morning. Follow all instructions in the bariatric handbook and call with any questions. Care Plan Goals: weight loss Health Concerns: morbid obesity Plan of Treatment: see discharge instructions Discharge Date/Time: 09/05/20 08:35
--- NOTE | 2020-09-04 10:38 | PM.PNGS ---
Subjective Subjective Date of Service: 09/05/20 Interval history: Patient has mild incisional pain but was able to ambulate and use the incentive spirometer. Is tolerating water 30ml every 30min. Physical Exam Vital Signs: Vital Signs: Last Vital Signs Temp 99.0 F 09/04/20 06:20 Pulse 72 09/04/20 06:20 Resp 16 09/04/20 06:20 BP 126/50 L 09/04/20 06:20 Pulse Ox 99 09/04/20 06:20 Body Mass Index 35.6 GI: Inspection: Yes normal to inspection, Yes incision (dry, clean and intact) and Yes obesity Extrem: Right lower extremity: normal to inspection (no calf tenderness) Left lower extremity: normal to inspection (no calf tenderness) Progress Note: A&P Assessment and plan (1) Obesity: Status: Acute (2) BMI 37.0-37.9, adult: Status: Acute (3) GERD (gastroesophageal reflux disease): Status: Acute (4) Anxiety and depression: Status: Acute (5) ADHD: Problem details: Stop all caffeine after 2pm. Limit to one mug in am , then decaf. Status: Acute (6) Diaphragmatic hernia: Status: Acute (7) Steatosis, liver: Status: Acute (8) Insomnia: Status: Acute (9) S/P laparoscopic sleeve gastrectomy: Status: Acute Assessment and Plan: 50 year old Female was admitted 09/04/2020 with morbid obesity and comorbidities. Problem 1: s/p laparoscopic sleeve gastrectomy, repair of incarcerated diaphragmatic hernia, gastropexy and lysis of adhesions Status: Doing well Plan: Check am labs, If OK, will begin phase 1 bariatric diet. (10) S/P repair of paraesophageal hernia: Status: Acute Fall Risk Details Current Medications: Current Medications Generic Name Dose Route Start Last Admin Trade Name Freq PRN Reason Stop Dose Admin Acetaminophen 975 mg 09/04/20 07:55 Acetaminophen 325 Mg Tablet PO ONCE PRN Pain, Mild (Pain Scale 1-3) Lactated Ringer's 1,000 mls @ 100 mls/hr 09/04/20 06:15 09/04/20 07:09 Lr IVCONT 100 mls/hr .Q10H MIGNON Administration Ondansetron HCl 4 mg 09/04/20 07:55 Ondansetron Hcl 4 Mg/2 Ml Vial IVPUSH ONCE PRN Nausea and Vomiting Time Spent With Patient Time: Total time spent is greater than 50% in coordination of care (as documented) at patient's floor/unit and/or counseling patient: Time with patient: less than 15 minutes
[2020-09-04] MEDS: Famotidine/PF 20 MG/2 ML VIAL IVPUSH ×2 (11:04→21:11)
[2020-09-04 11:09] LABS: Hematocrit 40.1 % (37-47); Hemoglobin 13.3 g/dl (12.0-16.0)
[2020-09-04 11:48] LABS: Anion Gap 15 (12-20); Blood Urea Nitrogen 6 mg/dL (9-16); Calcium 8.9 mg/dL (8.4-10.2); Carbon Dioxide 24 mmol/L (22-29); Chloride 105 mmol/L (96-108); Creatinine Clr Calc Pharmacy 86.7; Estimated Glomerular Filt Rate > 60; Glucose Random 149 mg/dL (60-115); Potassium 4.2 mmol/L (3.3-5.1); Sodium 140 mmol/L (135-145)
[2020-09-04] MEDS: Lactated Ringers 1,000 ML 125 ML IVCONT ×2 (12:36→20:50)
[2020-09-04] MEDS: ceFAZolin Sodium/Dextrose,Iso 2 GM/50 ML PIGGYBACK IV (12:53)
[2020-09-04] MEDS: HYDROmorphone HCl 0.5 MG/0.5 ML SYRINGE 0.25 MG IVPUSH ×2 (17:09→21:11)
[2020-09-04] MEDS: ondansetron HCL 4 MG/2 ML VIAL IVPUSH (19:49)
[2020-09-04] MEDS: Gabapentin 300 MG CAPSULE PO (21:12)
[2020-09-04] MEDS: traZODone HCL 100 MG TABLET PO (21:12)
[2020-09-04] MEDS: 0.9 % Sodium Chloride Flush 3 ML SYRINGE IVFLUSH (21:12)
[2020-09-04] MEDS: Metoclopramide HCl 10 MG/2 ML VIAL IVPUSH (21:18)
[2020-09-05] VITALS: BP 128/78; PULSE 69; RESP 16; O2SAT 98
[2020-09-05 03:33] VITALS: BP 130/70; PULSE 72; RESP 16; TEMP 36.9; O2SAT 95
[2020-09-05] MEDS: ondansetron HCL 4 MG/2 ML VIAL IVPUSH (04:15)
[2020-09-05] MEDS: Lactated Ringers 1,000 ML 125 ML IVCONT (04:15)
[2020-09-05 04:22] VITALS: RESP 18
[2020-09-05] MEDS: HYDROmorphone HCl 0.5 MG/0.5 ML SYRINGE 0.25 MG IVPUSH (04:22)
[2020-09-05 06:19] LABS: MANUAL DIFF FLAG NO
[2020-09-05 06:23] LABS: Basophils Percent Auto 0.1 % (0-2); Imm Gran Abs Auto 0.03 X10*3/uL (0.00-0.03); Imm Gran Pct Auto 0.3 % (0.0-0.4); Lymphocytes Absolute Auto 1.5 X10*3/uL (1.2-4.9); Lymphocytes Percent Auto 13.9 % (20-40); Mean Corpuscular HGB Conc 34.2 g/dl (31.0-35.0); Mean Corpuscular Hemoglobin 30.2 pg (27.0-33.0); Mean Corpuscular Volume 88.4 fL (80-98); Mean Platelet Volume 10.4 fL (9.4-12.3); Monocytes Absolute Auto 0.8 X10*3/uL (0.1-1.2); Monocytes Percent Auto 7.2 % (2-11); Neutrophils Absolute Auto 8.3 X10*3/uL (2.0-8.3); Neutrophils Percent Auto 78.5 % (45-73); Platelet Count 254 X10*3/uL (160-400); Red Cell Distribution Width 12.9 % (11.0-16.0); White Blood Count 10.5 X10*3/uL (4.8-10.8)
[2020-09-05 07:04] LABS: Anion Gap 15 (12-20); Blood Urea Nitrogen 6 mg/dL (9-16); Carbon Dioxide 24 mmol/L (22-29); Chloride 101 mmol/L (96-108); Creatinine Clr Calc Pharmacy 97.2; Estimated Glomerular Filt Rate > 60; Glucose Random 96 mg/dL (60-115); Potassium 4.1 mmol/L (3.3-5.1); Sodium 136 mmol/L (135-145)
[2020-09-05 07:14] VITALS: BP 106/44; PULSE 73; RESP 17; TEMP 36.3; O2SAT 96
--- NOTE | 2020-09-05 08:31 | MHC.CM.PN ---
pt lives c her s.o. in their apt. she reports that she is independent in her care. she works a job and goes to school for nsg. pt's s.o. can help her c any needs she may have. this will include a ride home at dc . pt denies the need for vna at dc. dc plan is home no svcs. cm to cont. to follow.
--- NOTE | 2020-09-05 12:16 | HO.POSTANES ---
Post Anesthesia Evaluation Post Anesthesia Evaluation Vital Signs: Vital Signs Temp Pulse Resp BP Pulse Ox 09/05/20 07:14 97.4 F 73 17 106/44 L 96 09/05/20 04:22 18 09/05/20 03:33 98.5 F 72 16 130/70 95 Anesthesia: General Endotracheal-GETA Mental Status: Awake Pain Control: Satisfactory Nausea/Vomiting: None Hydration: Adequate Anesthesia-Related Issues: No Anes. Related Issues
== END 2020-09-05 08:35 | disposition home or self-care (01) | DRG 403 ==
LOC: HO.SSSA 10:38 → HO.S3 10:49
PROVIDERS: Physician Assistant; Admitting Provider Surgery; PCP Internal Medicine; Visit Provider Surgery
PROC: 0DB64Z3 Excision of Stomach, Percutaneous Endoscopic Approach, Vertical (ICD-10-PCS; CPT 43845; principal; 2020-09-04 07:30)
DX: E66.01 Morbid (severe) obesity due to excess calories (principal); K76.0 Fatty (change of) liver, not elsewhere classified; K44.0 Diaphragmatic hernia with obstruction, without gangrene; F32.9 Major depressive disorder, single episode, unspecified; K21.9 Gastro-esophageal reflux disease without esophagitis; Z68.42 Body mass index [BMI] 45.0-49.9, adult; F90.9 Attention-deficit hyperactivity disorder, unspecified type; G47.00 Insomnia, unspecified; K66.0 Peritoneal adhesions (postprocedural) (postinfection); Z20.822 Contact with and (suspected) exposure to COVID-19; Z79.899 Other long term (current) drug therapy
CPT/HCPCS: 36415; 80048; 85014; 85018; 85025; 86850; 86900; 87635; 88307; 88342; 99024; A4649; J0131; J0690; J1100; J1170; J2250; J2405; J2765; J3010

== ENCOUNTER → 2020-09-12 08:41 | Outpatient (BNVA) | payer OTHER, SELFPAY | PROVIDERS: PCP Internal Medicine; Visit Provider Surgery | DX: E66.9 Obesity, unspecified (principal); Z68.34 Body mass index [BMI] 34.0-34.9, adult; Z71.3 Dietary counseling and surveillance | CPT/HCPCS: 99212 ==

== ENCOUNTER → 2020-10-10 08:20 | Outpatient (BNVA) | payer OTHER, SELFPAY | PROVIDERS: PCP Internal Medicine; Visit Provider Surgery | DX: E66.9 Obesity, unspecified (principal); Z68.31 Body mass index [BMI] 31.0-31.9, adult | CPT/HCPCS: 99212 ==

== ENCOUNTER → 2020-11-09 07:59 | Outpatient (BNVA) | payer OTHER, SELFPAY | PROVIDERS: PCP Internal Medicine; Visit Provider Surgery | DX: E66.9 Obesity, unspecified (principal); Z68.30 Body mass index [BMI] 30.0-30.9, adult | CPT/HCPCS: 99212 ==

== ENCOUNTER → 2020-12-26 07:27 | Outpatient (BNVA) | payer OTHER, SELFPAY | PROVIDERS: PCP Internal Medicine; Visit Provider Surgery ==

== ENCOUNTER → 2021-01-29 09:09 | Outpatient (BNVA) | payer SELFPAY | PROVIDERS: PCP Internal Medicine | DX: Z02.1 Encounter for pre-employment examination (principal) ==

== ENCOUNTER → 2021-02-26 08:17 | Outpatient (BNVA) | payer SELFPAY | PROVIDERS: PCP Internal Medicine; Visit Provider Physician Assistant Surgical ==

== ENCOUNTER → 2021-04-04 07:58 | Outpatient (BNVA) | payer OTHER, SELFPAY | PROVIDERS: PCP Internal Medicine; Visit Provider Physician Assistant Surgical ==

== ENCOUNTER → 2021-05-24 08:02 | Outpatient (BNVA) | payer OTHER, SELFPAY | PROVIDERS: PCP Internal Medicine; Visit Provider Physician Assistant Surgical | DX: Z98.84 Bariatric surgery status (principal); Z98.890 Other specified postprocedural states; Z87.19 Personal history of other diseases of the digestive system | CPT/HCPCS: 99212 ==

== ENCOUNTER 2021-09-20 10:56 | Outpatient (REF) | payer OTHER, SELFPAY ==
[2021-09-20 12:16] LABS: MANUAL DIFF FLAG NO
[2021-09-20 12:31] LABS: Basophils Percent Auto 0.8 % (0-2); Eosinophils Absolute Auto 0.1 X10*3/uL (0.0-0.4); Eosinophils Percent Auto 1.3 % (0-4); Hematocrit 40.1 % (37.0-47.0); Hemoglobin 13.3 g/dl (12.0-16.0); Imm Gran Abs Auto 0.01 X10*3/uL (0.00-0.03); Imm Gran Pct Auto 0.3 % (0.0-0.4); Lymphocytes Absolute Auto 1.6 X10*3/uL (1.2-4.9); Lymphocytes Percent Auto 42.2 % (20-40); Mean Corpuscular HGB Conc 33.2 g/dl (31.0-35.0); Mean Corpuscular Hemoglobin 29.8 pg (27.0-33.0); Mean Corpuscular Volume 89.7 fL (80.0-98.0); Mean Platelet Volume 8.9 fL (9.4-12.3); Monocytes Absolute Auto 0.2 X10*3/uL (0.1-1.2); Monocytes Percent Auto 6.1 % (2-11); Neutrophils Absolute Auto 1.8 x10*3/uL (2.0-8.3); Neutrophils Percent Auto 49.3 % (45-73); Platelet Count 274 X10*3/uL (160-400); Red Blood Count 4.47 X10*6/uL (4.20-5.50); Red Cell Distribution Width 12.4 % (11.0-16.0); White Blood Count 3.7 X10*3/uL (4.8-10.8)
[2021-09-20 13:06] LABS: Estimated Average Glucose 100 mg/dL; Hemoglobin A1c % 5.1 %
[2021-09-20 13:27] LABS: Folate 10.2 ng/mL (> or = 4.0); Vitamin B12 371 pg/mL (200-900)
[2021-09-20 14:04] LABS: Anion Gap 13 (12-20); Blood Urea Nitrogen 13 mg/dL (9-16); C Reactive Protein 0.13 mg/dL (< or = 0.50); Calcium 10.4 mg/dL (8.4-10.2); Carbon Dioxide 30 mmol/L (22-29); Chloride 104 mmol/L (96-108); Cholesterol 257 mg/dL; Estimated Glomerular Filt Rate > 60; Glucose Random 102 mg/dL (60-115); HDL Cholesterol 70 mg/dL; Iron 108 mcg/dL (30-160); LDL Cholesterol Calculated 175 mg/dl; Percent Iron Saturation 37 % (15-50); Potassium 4.6 mmol/L (3.3-5.1); Sodium 142 mmol/L (135-145); Total Iron Binding Capacity 294 mcg/dL (228-428); Triglycerides 62 mg/dL; Unsaturated Iron Binding 186 ug/dL
[2021-09-20 14:21] LABS: Ferritin 87 ng/mL (10-250); TSH reflex Free T4 1.16 uIU/mL (0.32-4.0)
[2021-09-23 12:41] LABS: PTHI 53 pg/mL (16-77)
[2021-09-24 15:56] LABS: Zinc 72 mcg/dL (60-130)
[2021-09-24 22:13] LABS: Vitamin A 38 mcg/dL (38-98)
[2021-09-26 16:36] LABS: Vitamin B1 9 nmol/L (8-30)
== END 2021-09-20 10:57 | disposition home or self-care (01) ==
LOC: HO.LAB 10:56
PROVIDERS: PCP Internal Medicine; Visit Provider Physician Assistant Surgical
DX: E66.3 Overweight (principal); R14.3 Flatulence; Z98.84 Bariatric surgery status; Z71.3 Dietary counseling and surveillance; Z87.891 Personal history of nicotine dependence
CPT/HCPCS: 36415; 80048; 80061; 82306; 82607; 82728; 82746; 83036; 83540; 83970; 84425; 84443; 84590; 84630; 85025; 86140; 99212

== ENCOUNTER 2023-07-29 13:22 | Outpatient (AMB) | payer OTHER, SELFPAY ==
--- NOTE | 2023-07-29 13:23 | A.OFFVIS_ITS ---
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 Presents for 2 year, 11 month post op visit. Weight at last visit on 09/20/21 was 150.8 pounds with a BMI of 26.3, weight today is 178.4 pounds, with a BMI today of 31.1. No complaints of nausea, emesis, abdominal pain or reflux. Reports normal bowel movements everyday. Complains of increase flatulence. She is not taking Bariatric multi vit. She was advised to take MVI at night. She states that she has not been seen in the office for approximately 22 months as she felt as though she did not need to come in. She tried weight watchers on her own without significant success. Present meal plan includes: Atkins RTD shake turkey sandwich soup, vegetables, pasta, salad drinking 40 oz water Exercise routine includes: walking 2 miles per day for the last week. Any post op complications: None INDU: never DM: never HTN: resolved Hyperlipidemia: never GERD:?0-5 scale ??0 = no symptoms ??1 = symptoms noticeable but not bothersome 2 =symptoms bothersome but not daily ? 3 = symptoms bothersome and daily 4 = symptoms affect daily activities 5 = symptoms are incapacitating, unable to do daily activities ? How bad is the heartburn: 0 ? Heartburn while lying down: 0 ? Heartburn when standing up: 0 ? Heartburn after meals: 0 ? Does heartburn change your diet: 0 ? Does heartburn wake you up from sleep: 0 ? Do you have difficulty swallowin ? Do you have pain with swallowin ? If you take medicine for your reflux, does this affect your daily life: 0 Satisfaction with present condition - satisfied or not satisfied: not satsfied [facility] Medical History Insomnia Steatosis, liver GERD (gastroesophageal reflux disease) History of alcohol dependence Arthritis GERD (gastroesophageal reflux disease) Sleep apnea BMI 39.0-39.9,adult Encounter for screening colonoscopy Pre-op evaluation Bone spur Morbid obesity ADHD Anxiety and depression Surgical History History of sleeve gastrectomy S/P repair of paraesophageal hernia H/O colonoscopy History of back surgery Family History Father No problems noted. Mother Cholangiocarcinoma Sister Diabetes mellitus Brother No problems noted. Brother No problems noted. Son No problems noted. Social History Are you a primary toddler caregiver to a significant other at home: No Do you presently have visiting nurse or other home services: No Alcohol intake: former Year quit: 2014 Comment: pt sleeping Patient Tobacco Use Status: Former Tobacco user Cigarette Packs Per Day: 1 Years Smoked: 10 Second Hand Smoke Exposure: No service: No Current occupational status: student Physical Exam Const General: cooperative and no acute distress Orientation/consciousness: patient oriented x3 Resp Effort & Inspection: normal respiratory effort Auscultation: clear to auscultation bilaterally Cardio Rate: regular rate Rhythm: regular rhythm GI Inspection: Yes normal to inspection and Yes incision (well healed) Palpation (GI): Soft to palpation and no masses Neuro General: patient oriented x3 Assessment & Plan Assessment & Plan (1) Obesity: Code(s): E66.9 - Obesity, unspecified Plan: Patient will start a new meal plan: A superior shake, half scoop in 8 oz of unsweetened almond milk or water from 07:00 to 09:00 and another 1 at 11:00 to 13:00. Meal at 17:00 with 7 forks of protein and 7 forks of salad or vegetables. Zone perfect bar 19:00 to 21:00. Increase fluid intake to 60 oz of water daily. Resume exercise plan with a goal of 2000 calories per week. Check 3 year follow-up postop labs. Encouraged to take a bariatric multivitamin and calcium plus D. Return to clinic 3 weeks. Orders: Orders Insulin Today E66.9 - Obesity, unspecified, Z98.84 - Bariatric surgery status Hemoglobin A1c Today E66.9 - Obesity, unspecified, Z98.84 - Bariatric surgery status Complete Blood Count Auto Diff Today E66.9 - Obesity, unspecified, Z98.84 - Bariatric surgery status IRON PROFILE Today E66.9 - Obesity, unspecified, Z98.84 - Bariatric surgery status Vitamin B12 and Folate Today E66.9 - Obesity, unspecified, Z98.84 - Bariatric surgery status Zinc Today E66.9 - Obesity, unspecified, Z98.84 - Bariatric surgery status C Reactive Protein Today E66.9 - Obesity, unspecified, Z98.84 - Bariatric millan rgery status Vitamin A Today E66.9 - Obesity, unspecified, Z98.84 - Bariatric surgery status Vitamin D 25-OH Total Today E66.9 - Obesity, unspecified, Z98.84 - Bariatric surgery status Basic Metabolic Panel Today E66.9 - Obesity, unspecified, Z98.84 - Bariatric surgery status Lipid Panel Today E66.9 - Obesity, unspecified, Z98.84 - Bariatric surgery status Vitamin B1 Today E66.9 - Obesity, unspecified, Z98.84 - Bariatric surgery status TSH reflex Free T4 Today E66.9 - Obesity, unspecified, Z98.84 - Bariatric surgery status Ferritin Today E66.9 - Obesity, unspecified, Z98.84 - Bariatric surgery status Coding Level of Care Code Est Pt Level 4 (17605) Diagnoses Obesity E66.9
[2023-07-29 13:30] VITALS: BP 111/68; PULSE 78; TEMP 36.1; O2SAT 96; BMI 31.1
== END 2023-07-29 14:02 | disposition home or self-care (01) ==
PROVIDERS: PCP Student in an Organized Health Care Education/Training Program; Visit Provider Physician Assistant Surgical
DX: E66.9 Obesity, unspecified (principal)
CPT/HCPCS: 99214

== ENCOUNTER → 2023-07-29 13:22 | Outpatient (BNVA) | payer OTHER, SELFPAY | PROVIDERS: PCP Student in an Organized Health Care Education/Training Program; Visit Provider Physician Assistant Surgical ==

== ENCOUNTER 2023-07-30 10:12 | Outpatient (REF) | payer OTHER, SELFPAY ==
[2023-07-30 10:37] LABS: MANUAL DIFF FLAG NO
[2023-07-30 10:48] LABS: Basophils Percent Auto 0.9 % (0-2); Eosinophils Absolute Auto 0.1 X10*3/uL (0.0-0.4); Eosinophils Percent Auto 1.1 % (0-4); Hematocrit 43.4 % (37.0-47.0); Hemoglobin 14.7 g/dl (12.0-16.0); Imm Gran Abs Auto 0.02 X10*3/uL (0.00-0.03); Imm Gran Pct Auto 0.5 % (0.0-0.4); Lymphocytes Absolute Auto 1.4 X10*3/uL (1.2-4.9); Mean Corpuscular HGB Conc 33.9 g/dl (31.0-35.0); Mean Corpuscular Hemoglobin 30.1 pg (27.0-33.0); Mean Corpuscular Volume 88.9 fL (80.0-98.0); Mean Platelet Volume 8.9 fL (9.4-12.3); Monocytes Absolute Auto 0.3 X10*3/uL (0.1-1.2); Monocytes Percent Auto 5.7 % (2-11); Neutrophils Absolute Auto 2.6 x10*3/uL (2.0-8.3); Neutrophils Percent Auto 58.8 % (45-73); Platelet Count 272 X10*3/uL (160-400); Red Blood Count 4.88 X10*6/uL (4.20-5.50); Red Cell Distribution Width 12.1 % (11.0-16.0); White Blood Count 4.4 X10*3/uL (4.8-10.8)
[2023-07-30 10:54] LABS: Estimated Average Glucose 103 mg/dL; Hemoglobin A1c % 5.2 % (<6.0)
[2023-07-30 11:27] LABS: Anion Gap 14 (12-20); Blood Urea Nitrogen 16 mg/dL (9-16); C Reactive Protein 0.17 mg/dL (< or = 0.50); Calcium 10.1 mg/dL (8.4-10.2); Carbon Dioxide 29 mmol/L (22-29); Chloride 100 mmol/L (96-108); Cholesterol 267 mg/dL (<200); Estimated Glomerular Filt Rate > 60; Glucose Random 102 mg/dL (60-115); HDL Cholesterol 81 mg/dL (>40); Iron 99 mcg/dL (30-160); LDL Cholesterol Calculated 174 mg/dL (<100); Percent Iron Saturation 35 % (15-50); Potassium 3.9 mmol/L (3.3-5.1); Sodium 139 mmol/L (135-145); Total Iron Binding Capacity 280 mcg/dL (228-428); Triglycerides 60 mg/dL (<150); Unsaturated Iron Binding 181 ug/dL
[2023-07-30 11:38] LABS: Ferritin 74 ng/mL (10-250); TSH reflex Free T4 1.06 uIU/mL (0.32-4.0); Vitamin D 25-OH Total 38.5 ng/mL (>30)
[2023-07-30 11:48] LABS: Vitamin B12 467 pg/mL (200-900)
[2023-07-30 11:58] LABS: Insulin 7 uU/mL (2-29)
[2023-08-02 14:13] LABS: Zinc 74 mcg/dL (60-130)
[2023-08-04 02:49] LABS: Vitamin A 42 mcg/dL (38-98)
[2023-08-06 13:59] LABS: Vitamin B1 11 nmol/L (8-30)
== END 2023-07-30 10:13 | disposition home or self-care (01) ==
LOC: HO.LAB 10:12
PROVIDERS: Visit Provider Physician Assistant Surgical
DX: E66.9 Obesity, unspecified (principal); Z98.84 Bariatric surgery status
CPT/HCPCS: 36415; 80048; 80061; 82306; 82607; 82728; 82746; 83036; 83525; 83540; 84425; 84443; 84590; 84630; 85025; 86140

== ENCOUNTER 2023-09-07 14:09 | Outpatient (AMB) | payer OTHER, SELFPAY ==
--- NOTE | 2023-09-07 11:18 | MHC.OFFVISWM ---
Intake VS Expanded 09/07/23 11:19 Height 5 ft 3 in Weight 170 lb 2 oz BMI 30.1 Body Fat % 41.5 Body Fat Mass 70.6 Fat Free Mass 99.6 Visceral Fat Rating 10.5 Body Water % 45.6 Body Water Mass 77.6 Muscle Mass/Score 92 Basal Metabolic Rate/Score 1,346 Intake Visit Reasons: (tV) PO LSG 09/04/2020 Allergies Latex, Natural Rubber Allergy (Mild, Verified 09/20/21 11:17) Hives prochlorperazine [From Compazine] Allergy (Mild, Verified 09/20/21 11:17) itching/anxiety HPI HPI Comments History of Present Illness Details This?a?51?yo female who is s/p LSG with hiatal hernia repair on?09/04/[address] Kilgore. Presents for 3 year post op visit. Weight at last visit on 07/29/23 was 178.4 pounds with a BMI of 31.1, weight today is 170.2 pounds, with a BMI today of 30.1. No complaints of nausea, emesis, abdominal pain or reflux. Reports normal bowel movements everyday. Complains of increase flatulence. She is not taking Bariatric multi vit. She was advised to take MVI at night. She states that she has not been seen in the office for approximately 22 months as she felt as though she did not need to come in. She tried weight watchers on her own without significant success. Labs from 07/30/23 good, she has been compliant with the meal plan, a majority of the time except for a work alliance party. Overall satisfied with the meal plan Present meal plan includes: isopure shake, half scoop in 8 oz of unsweetened almond milk or water from 07:00 to 09:00 another 1 at 11:00 to 13:00. Meal at 17:00 with 7 forks of protein and 7 forks of salad or vegetables. Zone perfect bar 19:00 to 21:00. drinking 40 oz water Exercise routine includes: 4-5 days per week elliptical, treadmill or stairmaster, 350-400 calories burned Any post op complications: None INDU: never DM: never HTN: resolved Hyperlipidemia: never GERD:?0-5 scale ??0 = no symptoms ??1 = symptoms noticeable but not bothersome 2 =symptoms bothersome but not daily ? 3 = symptoms bothersome and daily 4 = symptoms affect daily activities 5 = symptoms are incapacitating, unable to do daily activities ? How bad is the heartburn: 0 ? Heartburn while lying down: 0 ? Heartburn when standing up: 0 ? Heartburn after meals: 0 ? Does heartburn change your diet: 0 ? Does heartburn wake you up from sleep: 0 ? Do you have difficulty swallowin ? Do you have pain with swallowin ? If you take medicine for your reflux, does this affect your daily life: 0 Satisfaction with present condition - satisfied or not satisfied: not satsfied [facility] [place] Medical History Insomnia Steatosis, liver GERD (gastroesophageal reflux disease) History of alcohol dependence Arthritis GERD (gastroesophageal reflux disease) Sleep apnea BMI 39.0-39.9,adult Encounter for screening colonoscopy Pre-op evaluation Bone spur Morbid obesity ADHD Anxiety and depression Surgical History History of sleeve gastrectomy S/P repair of paraesophageal hernia H/O colonoscopy History of back surgery Family History Father No problems noted. Mother Cholangiocarcinoma Sister Diabetes mellitus Brother No problems noted. Brother No problems noted. Son No problems noted. Social History Are you a primary wild animal caretaker to a significant other at home: No Do you presently have visiting nurse or other home services: No Alcohol intake: former Year quit: 2014 Comment: pt sleeping Patient Tobacco Use Status: Former Tobacco user Cigarette Packs Per Day: 1 Years Smoked: 10 Second Hand Smoke Exposure: No service: No Current occupational status: student Physical Exam Vital Signs: BMI result Body Mass Index 30.1 Assessment & Plan Assessment & Plan (1) Obesity: Code(s): E66.9 - Obesity, unspecified Plan: Patient is making good progress. We will suggest that she continue her current meal plan. Recommend adding yoga 1-2 times per week. We will have her follow-up in the office in approximately 4 weeks. Encouraged to text weekly with weight and if any questions or concerns. Telehealth Telehealth Location of provider rendering services: practice address Location of patient: other Patient Identification confirmed using: Name, : Yes Telehealth method: voice only Patient verbally consented to treatment: Yes Patient verbally consented to billing insurance company: Yes Patient informed of any privacy concerns related to visit: Yes Minutes spent on Phone/Video with Pt.: 10 Coding Level of Care Code Tele Est Pt Level 3 (78493) Diagnoses Obesity E66.9 Time Spent (min) 15
[2023-09-07 11:19] VITALS: BMI 30.1
== END 2023-09-07 14:19 | disposition home or self-care (01) ==
LOC: HO.HBS 14:09
PROVIDERS: PCP Student in an Organized Health Care Education/Training Program; Visit Provider Physician Assistant Surgical
DX: E66.9 Obesity, unspecified (principal); Z68.30 Body mass index [BMI] 30.0-30.9, adult; Z90.3 Acquired absence of stomach [part of]; Z98.84 Bariatric surgery status
CPT/HCPCS: 99213

== ENCOUNTER → 2023-09-07 14:09 | Outpatient (BNVA) | payer OTHER, SELFPAY | PROVIDERS: PCP Student in an Organized Health Care Education/Training Program; Visit Provider Physician Assistant Surgical | DX: E66.9 Obesity, unspecified (principal); Z98.84 Bariatric surgery status ==